=== PATIENT | male | born 1990 | race Caucasian/White ===

== ENCOUNTER 2018-06-16 20:27 | Emergency (ER) | payer OTHER ==
[~2018-06-16] VITALS: Ht 200.7 cm; Wt 158.8 kg
[~2018-06-16 20:27] MED LIST: ERYT1OIN RIGHTEYE
[2018-06-16] MEDS ORDERED: BENZ100A PO (21:19)
== END 2018-06-16 21:23 | disposition home or self-care (01) ==
LOC: ER 20:27
DX: J40 Bronchitis, not specified as acute or chronic (principal)
CPT/HCPCS: 99282

== ENCOUNTER 2023-06-30 07:52 | Observation (INO) | payer OTHER ==
[~2023-06-30] VITALS: Ht 200.7 cm; Wt 157.9 kg
[~2023-06-30 07:52] MED LIST changes: +BENZ100A PO
[2023-06-30 10:49] LABS: BASOPHILS ABSOLUTE AUTO 0.08 K/mm3 (0.00-0.23); BASOPHILS PERCENT AUTO 0 % (0-2); EOSINOPHILS ABSOLUTE AUTO 0.01 K/mm3 (0.00-0.68); EOSINOPHILS PERCENT AUTO 0 % (0-6); Hematocrit 42.7 % (37.0-53.0); Hemoglobin 14.6 g/dL (13.5-17.5); IMMATURE GRAN ABSOLUTE AUTO 0.18 K/mm3 (0.00-0.10); IMMATURE GRAN PERCENT AUTO 1 % (0-1); LYMPHOCYTES ABSOLUTE AUTO 1.57 K/mm3 (0.84-5.20); LYMPHOCYTES PERCENT AUTO 7 % (21-46); MONOCYTES ABSOLUTE AUTO 2.99 K/mm3 (0.16-1.47); MONOCYTES PERCENT AUTO 14 % (4-13); Mean Corpuscular HGB 27.9 pg (26.0-34.0); Mean Corpuscular HGB Conc 34.2 g/dL (31.5-36.5); Mean Corpuscular Volume 82 fL (80-100); Mean Platelet Volume 10.8 fL (9.1-12.4); NEUTROPHILS ABSOLUTE AUTO 17.25 K/mm3 (1.96-9.15); NEUTROPHILS PERCENT AUTO 78 % (41-73); Platelet Count 228 K/mm3 (150-400); RDW Coefficient Variation 13.7 % (11.7-14.2); RDW Standard Deviation 40.5 fL (35.1-46.3); Red Blood Cell Count 5.24 M/mm3 (4.30-5.90); White Blood Cell Count 22.08 K/mm3 (4.00-11.30)
[2023-06-30 11:16] LABS: Albumin, Blood 3.5 g/dL (3.4-5.0); Albumin/Globulin Ratio 0.7 (0.8-1.8); Bilirubin, Total 0.8 mg/dL (0.1-1.0); Bun/Creatinine Ratio 17.1 (12.0-20.0); Calcium, Blood 9.2 mg/dL (8.5-10.1); Creatinine, Blood 0.82 mg/dL (0.60-1.20); Globulin, Blood 4.9 g/dL (2.2-4.0); Potassium, Blood 3.6 mmol/L (3.5-5.5); Total Protein, Blood 8.4 g/dL (6.4-8.2)
[2023-06-30 17:38] VITALS: BP 145/88
--- NOTE | 2023-06-30 19:24 | NUR ---
LATE ENTRY 1715: RECEIVED REPORT FROM JERE LOVING. 1740: RECEIVED PT FROM ER VIA W/C, PLACED IN BED, MADE COMFORTABLE, ORIENTED TO ROOM & UNIT ROUTINE. PT A&O X 4, INDEPENDENT. VSS. MEDICATED FOR C/O THROAT PAIN WITH TORADOL WITH GOOD RELIEF STATED BY PT. PT STATES WARM LIQUIDS FEELS BETTER ON HIS THROAT THAN COLD LIQS.
[2023-06-30 20:19] VITALS: BP 149/82
[2023-07-01 05:23] VITALS: BP 160/88
--- NOTE | 2023-07-01 07:34 | NUR ---
PATIENT IS ALERT AND ORIENTED. WITH PIV ON LEFT HAND, PATENT AND INTACT ON SALINE LOCKED. COMPLAINT OF PAIN, MEDICATED WITH OXYCODONE PO. NEEDS ATTENDED. CALL LIGHT WITHIN PATIENT'S REACH. WILL CONTINUE TO MONITOR
[2023-07-01 08:07] VITALS: BP 142/91
[2023-07-01] MEDS ORDERED: KETO10 PO (11:57)
[2023-07-01] MEDS ORDERED: CEPACOL SORE THROAT PO (11:57)
--- NOTE | 2023-07-01 14:10 | NUR ---
LATE [facility] DC HOME 1245: WRITTEN & VERBAL DC INSTRUCTIONS GIVEN TO PT, GOOD UNDERSTANDING VERBALIZED BY PT. ALL CONCERNS & QUESTIONS ADDRESSED. NEW MED SCRIPTS FAXED TO [facility]. PIV DC'D WITH CATH TIP INTACT, NO REDNESS OR SWELLING NOTED. PT AMBULATED SELF OUT TO [facility]ENT[facility] WITH ALL PERSONAL BELONGINGS.
== END 2023-07-01 12:53 | disposition home or self-care (01) ==
LOC: ER 07:52 → MEDS 07:53 → ENPENDDIS 07-01 10:32 → MEDS 07-01 12:53
PROVIDERS: Student in an Organized Health Care Education/Training Program; ADMIT Internal Medicine
DX: J02.0 Streptococcal pharyngitis (principal); Z87.891 Personal history of nicotine dependence
CPT/HCPCS: 70491; 80053; 85025; 87081; 96361; 96372-59; 96374-59; 96375-59; 96376; 99285-25; A9270; G0378; J0561; J1100; J1885; J7030; Q9967

== ENCOUNTER 2024-01-03 09:58 | Emergency (ER) | payer OTHER ==
[~2024-01-03] VITALS: Ht 200.7 cm; Wt 181.4 kg
[~2024-01-03 09:58] MED LIST changes: +CEPACOL SORE THROAT PO; +KETO10 PO
[2024-01-03 10:11] VITALS: BP 159/88
== END 2024-01-03 10:50 | disposition home or self-care (01) ==
LOC: ER 09:58
DX: U07.1 COVID-19 (principal); F17.220 Nicotine dependence, chewing tobacco, uncomplicated
CPT/HCPCS: 99283